=== PATIENT | female | born 1950 | race Caucasian/White ===

== ENCOUNTER 2018-08-14 08:16 | Day surgery (SDC) | payer MEDICARE, OTHER ==
[~2018-08-14 08:16] MED LIST: EPHEDrine SULFATE 50 MG/5 ML SYG; SEVOFLURANE 15 MIN
[2018-08-14] MEDS ORDERED: LACTATED RINGER'S 1,000 ML IV* (09:30)
[2018-08-14] MEDS ORDERED: METOCLOPRAMIDE 10 MG INJ IV (10:00)
[2018-08-14] MEDS ORDERED: hydrALAzine 20 MG INJ IV (10:00)
[2018-08-14] MEDS ORDERED: FENTAnyl 50 MCG/ML VIAL IV ×2 (10:00)
[2018-08-14] MEDS ORDERED: LABETALOL HCL 20MG INJ IV (10:00)
[2018-08-14] MEDS: CLINDAMYCIN 900 MG/D5W (PMX) 50 ML IVPB (10:00)
[2018-08-14] MEDS ORDERED: OXYCODONE/ACETAMINOPHEN (5/325) TAB PO (10:00)
[2018-08-14] MEDS ORDERED: MEPERIDINE 25 MG INJ IV (10:00)
[2018-08-14] MEDS ORDERED: EPHEDrine SULFATE 50 MG/5 ML SYG IV (10:00)
[2018-08-14] MEDS ORDERED: HYDROmorphONE 1 MG/5 ML IV SYRINGE IV ×3 (10:00)
[2018-08-14] MEDS ORDERED: ROPIVACAINE 0.5 % 30 ML VIAL (10:04)
[2018-08-14] MEDS ORDERED: PROPOFOL 20 ML (10:04)
[2018-08-14] MEDS ORDERED: MIDAZOLAM 1 MG/ML 2 ML INJ (10:04)
[2018-08-14] MEDS ORDERED: FENTAnyl 50 MCG/ML VIAL (10:04)
[2018-08-14] MEDS: BUPIVACAINE 0.5% (SDV) 30 ML INJ (10:23)
[2018-08-14] MEDS: POLYMYXIN/BACITRACIN 1L IRRIG IRR (10:23)
[2018-08-14] MEDS ORDERED: CLINDAMYCIN 900 MG/D5W (PMX) 50 ML IVPB (10:54)
[2018-08-14] MEDS ORDERED: ONDANSETRON 4 MG INJ (10:54)
[2018-08-14] MEDS ORDERED: DEXAMETHASONE 4 MG/ML 5 ML INJ (10:55)
[2018-08-14] MEDS ORDERED: KETOROLAC 30 MG INJ (10:55)
[2018-08-14] MEDS ORDERED: METOCLOPRAMIDE 10 MG INJ (10:55)
[2018-08-14] MEDS: DIPHENHYDRAMINE 50 MG INJ IV (11:52)
[2018-08-14] MEDS: ONDANSETRON 4 MG INJ IV (11:52)
== END 2018-08-14 13:08 | disposition home or self-care (01) ==
LOC: SUR 08:16 → SDS 08:16 → SUR 13:08
DX: M20.41 Other hammer toe(s) (acquired), right foot (principal); E78.5 Hyperlipidemia, unspecified; E03.9 Hypothyroidism, unspecified
CPT/HCPCS: 28285; 73630